=== PATIENT | male | born 1965 | race Caucasian/White ===

== ENCOUNTER → 2016-10-20 | Outpatient (CLI) | payer BC ==
[~2016-10-20] MED LIST: ACET10VL INH; AMBI10TA PO; ASPI81TAEC PO; AZIT250T3 PO; BACT400T PO; BISO5TAB5 PO; CALC750T2 PO; CREO6000 PO; E-Z-GAS II EFFERVESCENT PACKET (SODIUM BICARB./CITRIC ACID/SIMETHICONE) As Ordered ONE; E-Z-HD 98% w/w 340GM SUSP BTL As Ordered ONE; E-Z-PAQUE 96% w/w SUSP 176GM BTL As Ordered ONE; FERR325T PO; FOLI800T PO; IPRA6SP; LEVA1.256 INH; MAGN400T5 PO; MONT10TA2 PO; OMEP20CA3 PO; PRAD75CA3 PO; PRED5TA PO; PROG1CAP10 PO; VITA500046 PO; VITMTA PO; [UNRECOGNIZED DRUG - CODE] PO
--- NOTE | 2016-10-20 11:24 | REP ---
Double contrast esophagram: History: Evaluate for oropharyngeal dysphasia. The patient is status post double lung transplant. 1 minute 19 seconds of fluoroscopy time was utilized. Findings: Preliminary keyboard action assembler radiograph demonstrates linear fibrosis and a little adjacent pleural thickening in the left base. Prior sternotomy wires are seen. Heart is not enlarged. The oropharyngeal phase of the barium swallow is recorded on rapid sequence spot radiographs in the AP and lateral projection. No motor discoordination of swallow is seen. No intrinsic or extrinsic mass lesion is observed in the pharynx, hypopharynx or cervical esophagus. No evidence of tracheal aspiration. No significant cervical spine abnormality. The thoracic esophagus is normal in caliber and course. One episode of mild gastroesophageal reflux is observed. A small sliding hiatal hernia is seen with recumbent prone imaging. There is a 4 mm filling defect noted in the distal esophagus at the GE junction associated with one of the gastric folds involved in the hiatal hernia. This oval-shaped filling defect may be a small 4 mm polyp. No other evidence of mass lesion seen. Impression: 1. No evidence of upper esophageal mass, intrinsic or extrinsic. Normal oral pharyngeal phase of the barium swallow. 2. Small sliding hiatal hernia with mild reflux. 3. 4 mm filling defect at the GE junction, question small polyp. Consider endoscopy. Signed by Jasper Oseguera MD 10/20/2016 03:04 P
== END | disposition home or self-care (01) ==
LOC: M RAD 09:25
PROVIDERS: ATTEND Internal Medicine Pulmonary Disease
DX: R13.10 Dysphagia, unspecified (principal); K44.9 Diaphragmatic hernia without obstruction or gangrene

== ENCOUNTER 2016-12-23 07:42 | Inpatient (IN) | payer BC ==
[~2016-12-23] VITALS: Ht 172.7 cm; Wt 90.7 kg
[~2016-12-23 07:42] MED LIST changes: -E-Z-GAS II EFFERVESCENT PACKET (SODIUM BICARB./CITRIC ACID/SIMETHICONE) As Ordered ONE; -E-Z-HD 98% w/w 340GM SUSP BTL As Ordered ONE; -E-Z-PAQUE 96% w/w SUSP 176GM BTL As Ordered ONE
[2016-12-23] MEDS ORDERED: AMIODARONE HCL 150 MG in APPROPRIATE DILUENT 1 EA IV STA ×4 (08:37→15:35)
[2016-12-23 08:50] LABS: MEAN CORPUSCULAR HEMOGLOBIN 32.3 pg (27.0-33.0); MEAN CORPUSCULAR HGB CONC 33.9 g/dl (32.0-36.5); MEAN CORPUSCULAR VOLUME 95.4 fl (80.0-96.0); WHITE BLOOD COUNT 6.2 K/mm3 (4.0-10.0)
[2016-12-23] MEDS ORDERED: MAGNESIUM OXIDE 400 MG TAB (MAG-OX) PO SCH (09:00)
[2016-12-23 09:22] LABS: INR 0.92
[2016-12-23 09:45] LABS: ALBUMIN 3.7 GM/DL (3.2-5.2); ALBUMIN/GLOBULIN RATIO 1.06 (1.00-1.93); ALKALINE PHOSPHATASE 90 U/L (45-117); ALT/SGPT 62 U/L (12-78); ANION GAP 9 MEQ/L (8-16); AST/SGOT 25 U/L (15-37); BILIRUBIN,TOTAL 0.3 MG/DL (0.2-1.0); BLOOD UREA NITROGEN 24 MG/DL (7-18); CALCIUM LEVEL 8.4 MG/DL (8.5-10.1); CARBON DIOXIDE LEVEL 23 MEQ/L (21-32); CHLORIDE LEVEL 110 MEQ/L (98-107); CREATININE FOR GFR 1.31 MG/DL (0.70-1.30); GLOMERULAR FILTRATION RATE > 60.0 (>60); GLUCOSE, FASTING 121 MG/DL (70-105); POTASSIUM SERUM 4.5 MEQ/L (3.5-5.1); SODIUM LEVEL 142 MEQ/L (136-145); TOTAL PROTEIN 7.2 GM/DL (6.4-8.2)
[2016-12-23] MEDS ORDERED: BISOPROLOL FUMARATE 5 MG TAB As Ordered ONE (09:57)
[2016-12-23] MEDS ORDERED: BISOPROLOL FUMARATE 5 MG TAB PO ONE ×2 (09:57→12:45)
[2016-12-23] MEDS ORDERED: MAGNESIUM OXIDE 400 MG TAB (MAG-OX) PO ONE (10:45)
[2016-12-23] MEDS ORDERED: DIGOXIN INJ 0.5 MG/2 ML AMP (J1160) As Ordered ONE (11:21)
[2016-12-23] MEDS ORDERED: DIGOXIN INJ 0.5 MG/2 ML AMP (J1160) IV ONE ×3 (11:37→15:45)
--- NOTE | 2016-12-23 11:47 | REP ---
PORTABLE CHEST: AP portable view of the chest is performed and compared to a prior study of 04/08/2016. There is mild cardiomegaly. Linear densities in each lung base are again seen unchanged consistent with bibasilar fibroatelectatic change. There is no new infiltrate or overt pulmonary edema. Mediastinal silhouette is unchanged. There are multiple sternal wires and mediastinal clips. IMPRESSION: Stable mild cardiomegaly and bibasilar fibroatelectatic change. No evidence for acute infiltrate. Signed by Joao Kitchen MD 12/23/2016 12:59 P
[2016-12-23 11:51] LABS: METHADONE URINE NEGATIVE (NEGATIVE)
[2016-12-23] MEDS ORDERED: DABIGATRAN ETEXILATE 75 MG CAP (PRADAXA) PO SCH (12:00)
--- NOTE | 2016-12-23 12:36 | ECGEPIP ---
Stationary ECG Study [facility] - ED Test Date: 2016-12-23 Pat Name: SUMIT CORTEZ Department: Room: - Gender: M Seal Extrusion Operator: JESUS : 1965 Requested By: Babak Wilson Order Number: [id number] Reading MD: Joann Walton Measurements Intervals [place] Rate: 133 P: [place]: 0 QRS: 44 QRSD: 94 T: 43 QT: 287 QTc: 427 Interpretive Statements ATRIAL FLUTTER/TACHYCARDIA WITH RAPID VENTRICULAR RESPONSE POSSIBLE RIGHT VENTRICULAR CONDUCTION DELAY LEFT VENTRICULAR HYPERTROPHY AND ST-T CHANGE VS ISCHEMIA PRIOR SINUS 07/11/16 Electronically Signed On 12-23-2016 12:36:11 EDT by Joann Walton
[2016-12-23] MEDS: ENTER DRUG NAME HERE (PATIENT'S OWN MED) PO ONE ×2 (13:30→16:00)
[2016-12-23] MEDS ORDERED: BISO5TAB5 PO (14:36)
[2016-12-23] MEDS ORDERED: ASPI1TAB PO (14:39)
[2016-12-23] MEDS ORDERED: CREON 6000 UNIT PO ONE (16:00)
[2016-12-23] MEDS ORDERED: ENTER DRUG NAME HERE (PATIENT'S OWN MED) PO ONE (17:15)
[2016-12-23] MEDS ORDERED: LEVALBUTEROL 1.25 MG/0.5 ML CONCENTRATE NEB INH PRN (21:00)
[2016-12-23] MEDS ORDERED: ACETYLCYSTEINE 10% 30 ML VIAL INH PRN (21:00)
[2016-12-23] MEDS ORDERED: zolPIDEM TARTRATE 10MG TAB PO PRN (21:00)
[2016-12-23] MEDS ORDERED: ACETAMINOPHEN TAB 650MG DOSE (2X325MG) PO PRN (21:00)
[2016-12-23] MEDS ORDERED: IPRATROPIUM 0.06% NASAL SPRAY 15 ML (ATROVENT) PRN (21:00)
[2016-12-23] MEDS ORDERED: BISOPROLOL FUMARATE 5 MG TAB PO SCH (21:00)
[2016-12-23] MEDS: DOCUSATE SODIUM 100 MG CAP PO SCH (21:00)
[2016-12-23] MEDS ORDERED: MONTELUKAST 10 MG TAB PO SCH (21:00)
[2016-12-23] MEDS: MAGNESIUM OXIDE 400 MG TAB (MAG-OX) PO SCH (21:25)
[2016-12-23] MEDS: OMEPRAZOLE 20 MG CAP PO SCH (21:25)
[2016-12-23 21:54] VITALS: BP 128/83
[2016-12-23] MEDS: BISOPROLOL FUMARATE 5 MG TAB PO SCH (21:54)
[2016-12-23] MEDS: DABIGATRAN ETEXILATE 75 MG CAP (PRADAXA) PO SCH (21:54)
--- NOTE | 2016-12-23 23:21 | HPE ---
DATE OF ADMISSION: 12/23/2016 PRIMARY CARE PROVIDER: Dr. Kam CHINESE TEACHER: Dr. Bernstein and Dr. Martinez TRANSPLANT SURGEON: Dr. Pritchett CHIEF COMPLAINT: Palpitations. 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 The patient sees Dr. Heriberto Pritchett at [facility]; phone number [phone]. The patient presented with a 1-day history of palpitations, subsequently presented to the emergency department (ED) and was found to be in atrial flutter with rapid ventricular response. The patient denies any chest pain, pressure or discomfort. Denies any significant medication change recently. He was given amiodarone, bisoprolol and digoxin in the emergency room. The patient denies any fevers or chills, shortness of breath, coughing. No sick contact. No leg swelling. No syncope or lightheadedness. The patient currently is comfortable. ALLERGIES: BENZODIAZEPINE, HYDRALAZINE, PENICILLIN. PAST MEDICAL HISTORY: Atrial flutter. Cystic fibrosis. GERD. Anemia. PAST SURGICAL HISTORY: Patient with lung transplant. SOCIAL HISTORY: The patient denies a history of smoking, drinking alcoholic beverages or illicit drug use. REVIEW OF SYSTEMS:10-point review of systems otherwise negative except for those mentioned in the history of the present illness. HOME MEDICATIONS: - acetylcysteine 10% solution 4 mL inhalation as needed for excessive secretions - aspirin 81 mg by mouth daily - azithromycin 250 mg three times a day, Tuesday, Tuesday, Tuesday - bisoprolol 5 mg by mouth twice a day - calcium lactate 750 mg by mouth twice a day - vitamin D 5000 units by mouth daily - Creon 6000 units capsule by mouth three times a day - ferrous sulfate 325 mg by mouth daily - folic acid 800 mcg by mouth daily - ipratropium inhalation three times a day as needed - levalbuterol 1.25 mg inhalation every 4 hours as needed - magnesium oxide 400 mg by mouth twice a day - montelukast 10 mg by mouth nightly - multivitamin one tablet by mouth daily - Noxafil 200 mg by mouth twice a day - prednisone 5 mg by mouth daily - omeprazole 20 mg by mouth twice a day - Prograf 1 mg by mouth every morning - Bactrim 400-80 mg tablet three times a week, Tuesday, Tuesday and Tuesday in the morning - Ambien 10 mg by mouth nightly as needed PHYSICAL EXAMINATION: VITAL SIGNS: Temperature 97, pulse 125, respirations 18, blood pressure 128/83, pulse oximetry 100% on room air. GENERAL: Patient alert and oriented times three, in no acute distress. HEENT: Normocephalic, atraumatic. PULMONARY: Bilaterally clear to auscultation. CARDIAC: Tachycardia, irregular. S1, S2. ABDOMEN: Soft, nontender, nondistended. EXTREMITIES: No edema bilateral lower extremities. EKG: Atrial flutter at 133. LABORATORY: WBC 6.2, hemoglobin and hematocrit 14.9 over 43.9, platelets 204. Chemistry: Sodium 142, potassium 4.5, chloride 110, bicarbonate 23, BUN 24, creatinine 1.3. Cardiac enzymes negative times two. TSH 2.76. ASSESSMENT AND PLAN: This is a 51-year-old male patient with underlying medical history of cystic fibrosis, status post bilateral double lung transplant, gastroesophageal reflux disease, anemia, also atrial flutter, admitted for atrial flutter with rapid ventricular response. PROBLEMS: 1. Atrial flutter with rapid ventricular response. Continue Zebeta, Pradaxa, digoxin as per cardiology. Will hold off amiodarone until discussion with cardiology given patient is on a lot of medications that can potentially have interactions. Case discussed initially with Dr. Bernstein by emergency room provider and Dr. Martinez from cardiology was consulted given that he is alteration hand over the weekend. Telemetry monitoring. Cardiac enzymes. Continue to monitor. 2. Cystic fibrosis with lung transplant. Continue medication as ordered. Supportive care. Patient currently not having any symptoms. 3. Gastroesophageal reflux disease. Continue proton pump inhibitor (PPI). 4. History of anemia. Follow hemoglobin and hematocrit, transfuse as needed. 5. Chronic kidney disease. BUN and creatinine currently at baseline. Continue to monitor. 6. Deep vein thrombosis (DVT) prophylaxis. Patient on Pradaxa for atrial flutter. DISPOSITION: Pending clinical improvement, telemetry monitoring, cardiology consultation tomorrow.
[2016-12-24] MEDS ORDERED: METAL LOCK LOOP XX ONE (03:44)
[2016-12-24 06:54] LABS: MEAN CORPUSCULAR HEMOGLOBIN 31.7 pg (27.0-33.0); MEAN CORPUSCULAR HGB CONC 33.3 g/dl (32.0-36.5); MEAN CORPUSCULAR VOLUME 95.3 fl (80.0-96.0); RED CELL DISTRIBUTION WIDTH 12.9 % (11.5-14.5); WHITE BLOOD COUNT 7.3 K/mm3 (4.0-10.0)
[2016-12-24 07:20] LABS: CALCIUM LEVEL 9.1 MG/DL (8.5-10.1); CREATININE FOR GFR 1.35 MG/DL (0.70-1.30); GLOMERULAR FILTRATION RATE 59.8 (>60); MAGNESIUM LEVEL 2.2 MG/DL (1.8-2.4); POTASSIUM SERUM 4.8 MEQ/L (3.5-5.1)
[2016-12-24] MEDS ORDERED: PROGRAF 0.5 MG PO SCH (08:00)
[2016-12-24] MEDS ORDERED: CREON 6000 UNIT PO SCH (08:00)
[2016-12-24] MEDS: DABIGATRAN ETEXILATE 75 MG CAP (PRADAXA) PO SCH (08:12)
[2016-12-24] MEDS: DOCUSATE SODIUM 100 MG CAP PO SCH (08:13)
[2016-12-24] MEDS ORDERED: ONDANSETRON 4MG/2ML VIAL (J2405) IV PRN (08:30)
[2016-12-24] MEDS: OMEPRAZOLE 20 MG CAP PO SCH (08:57)
[2016-12-24] MEDS: MAGNESIUM OXIDE 400 MG TAB (MAG-OX) PO SCH (08:57)
[2016-12-24] MEDS: BISOPROLOL FUMARATE 5 MG TAB PO SCH (08:58)
[2016-12-24] MEDS ORDERED: FERROUS SULFATE 325MG TAB PO SCH (09:00)
[2016-12-24] MEDS ORDERED: FOLIC ACID 1 MG TAB PO SCH (09:00)
[2016-12-24] MEDS ORDERED: VITAMIN D 1,000 INTERNATIONAL UNITS TABLET PO SCH (09:00)
[2016-12-24] MEDS ORDERED: BACTRIM 80MG/400MG TAB PO SCH (09:00)
[2016-12-24] MEDS ORDERED: MULTIVITAMINS/MINERALS THERAP 1 TAB PO SCH (09:00)
[2016-12-24] MEDS ORDERED: predniSONE 5 MG TAB PO SCH (09:00)
[2016-12-24] MEDS ORDERED: DIGOXIN 0.125 MG TAB PO SCH (09:00)
[2016-12-24] MEDS ORDERED: PROPOFOL 200 MG/20 ML VIAL As Ordered ONE (13:01)
[2016-12-24 13:42] VITALS: BP 120/80
--- NOTE | 2016-12-24 14:15 | RO ---
DATE OF PROCEDURE: 12/24/2016 PREPROCEDURE DIAGNOSIS: Typical atrial flutter. POSTPROCEDURE DIAGNOSIS: Normal sinus rhythm. PROCEDURE PERFORMED: Electrical biphasic cardioversion 150 joules times one with successful latter-day of normal sinus rhythm without complications. SURGEON: Dr. Ganga Martinez HANDKERCHIEF CUTTER: None. ANESTHESIA: Propofol administered by anesthesiologist. COMPLICATIONS: None. PROCEDURE DESCRIPTION: Transthoracic pace/sense patches were applied in reverse polarity such that the right upper chest patch was placed over the left posterior hemithorax and the apical patch was placed over the sternum. Following adequate sedation administered by anesthesiology, the patient received a single biphasic 150 joule direct current cardioversion shock, which converted him to sinus rhythm without any excessive pauses. No complications.
--- NOTE | 2016-12-24 14:29 | CR ---
DATE OF CONSULTATION: 12/24/2016 REFERRING PHYSICIAN: Dr. Shanelle Gardiner REASON FOR CONSULTATION: Typical atrial flutter. HISTORY OF PRESENT ILLNESS: Jhonny Calvillo is a 51-year-old man who is status post double lung transplant at the [facility] in 2009 because of cystic fibrosis. He has a history of transient postoperative atrial fibrillation following his double lung transplant. He had abrupt onset of palpitations and was found to be in atrial flutter with rapid ventricular response on 07/08/2016. He underwent successful direct cardioversion of typical atrial flutter on 07/11/[address] Martinez for which he received a single 150 joule biphasic cardioversion shock. The patient was in his usual state of health until about 11:00 p.m. on 12/22/2016 when he had the sudden onset of retrosternal rapid irregular palpitations which have persisted and are ongoing. He has noticed some transient slight shortness of breath laying supine since then. No exertional dyspnea. No paroxysmal nocturnal dyspnea. No chest, neck, jaw, or upper extremity pain, pressure, tightness, squeezing or heaviness with or without exertion. No presyncope or syncope. No leg or ankle swelling. No embolic events. No intermittent claudication. Echocardiogram Doppler on 07/10/2016 showed severe left atrial dilatation. Normal left ventricle size and wall thickness, wall motion and wall thickening. Normal left ventricle (LV) systolic function. Left ventricle ejection fraction (LVEF) 60% by visual estimate. Normal right ventricle size and systolic function. Normal right atrial size. Normal estimated right ventricle systolic pressure. At the time of the echocardiogram, he was in atrial flutter with predominantly 2:1 atrioventricular (AV) conduction with rapid ventricular response. OTHER PAST MEDICAL AND SURGICAL HISTORY: 1. Cystic fibrosis. 2. Typical atrial flutter as noted above. 3. Status post double lung transplant in [facility] in 2009. 4. Gastroesophageal reflux disease (GERD). 5. Anemia. 6. Obesity. ADVERSE DRUG REACTIONS: - benzodiazepines - hydralazine - penicillins HOME MEDICATIONS: - acetylcysteine 10% solution 4 mL inhaled daily as needed for excessive secretions - aspirin 81 mg daily - azithromycin 250 mg by mouth three times per week on Mondays, Wednesdays and Fridays - bisoprolol 5 mg by mouth twice a day - calcium lactate 750 mg by mouth twice a day - vitamin D 5000 units by mouth daily - Creon 6000 units one capsule three times a day - ferrous sulfate 325 mg daily - folic acid 800 mcg daily - ipratropium 2 sprays three times a day as needed (nasal spray) - levalbuterol 1.25 mg inhaled every 4 hours as needed - magnesium oxide 400 mg twice a day - Montelukast 10 mg at bedtime - multivitamin one daily - Noxafil 200 mg by mouth twice a day - omeprazole 20 mg by mouth twice a day - prednisone 5 mg daily - Prograf 0.5 mg one daily - Bactrim 400/80 mg one three times per week on Mondays, Wednesdays and Fridays - Ambien 10 mg by mouth at bedtime as needed for sleep CURRENT MEDICATIONS IN HOSPITAL: - acetaminophen 650 mg every 4 hours as needed - acetylcysteine 400 mg inhaled as needed for excessive secretions - Zithromax 250 mg on Mondays, Wednesdays and Fridays - bisoprolol 10 mg by mouth twice a day - Pradaxa 150 mg by mouth twice a day - digoxin 0.125 mg by mouth daily - Colace 100 mg by mouth twice a day - ferrous sulfate 325 mg by mouth daily - folic acid 1 mg by mouth daily - Atrovent nasal spray 2 sprays three times a day as needed for allergies - Xopenex 1.125 mg every 4 hours as needed - magnesium oxide 4 mg by mouth twice a day - Singulair 10 mg at bedtime - multivitamin one daily - unresolved medication, patient's own medication - omeprazole 20 mg by mouth twice a day - Zofran 4 mg IV every 4 hours as needed for nausea or vomiting - Prograf 0.5 mg by mouth daily - Creon 6000 units with meals by mouth - Noxafil oral suspension twice a day - prednisone 5 mg daily - Bactrim single strength one on Mondays, Wednesdays and Fridays - vitamin D 5000 units by mouth daily - Ambien 10 mg at bedtime as needed SOCIAL HISTORY: . No children. Disabled. Nonsmoker. No alcohol. No illicit drugs. Resident of [place], [place]. The patient reports he consumed two very large mugs of coffee on 12/22/2016 (regular brewed coffee). FAMILY HISTORY: Mother - chronic obstructive pulmonary disease and diabetes. Father - coronary artery disease. Brother - cystic fibrosis and also status post lung transplant. REVIEW OF SYSTEMS: As per history of present illness (HPI) above. No anxiety, panic attacks or depression. Other ten point review of systems otherwise negative. PHYSICAL EXAMINATION: Heart rate 127 (regular, atrial flutter with 2:1 AV conduction). Respiratory rate 18. Blood pressure 141/92 supine. Temperature 98.4. Oxygen saturation 95% on room air. Current height and weight not listed on this hospitalization thus far. Pleasant, , middle aged, mildly obese man who was not in any respiratory or psychologic distress. His previous height in the EMR was listed as 68 inches. No conjunctival pallor, scleral icterus or xanthomas. Multiple missing teeth. Oral mucosa was moist and without pallor or cyanosis. Jugular venous pulsations were at 3 cm. Trachea midline. No palpable thyroid. No clubbing, nail bed cyanosis, or splinter hemorrhages. No skin lesions, skin pallor or icterus. Oriented to person, place and time. Mood and affect were normal. Curvature of the spine normal. Gait normal. Gross motor strength and tone normal. No abnormal muscle atrophy, fasciculations or tremors. Respiratory expansion and effort was good. No crackles or wheezes. No palpable apex beat. No lifts, parasternal lifts, heaves, thrills, or palpable heart sounds. First and second heart sounds were normal, but rapid. No S3 or murmurs appreciated. No pericardial friction rubs. Extensive midline sternal scar was present. Carotids were normal in volume and contour and without bruits. No palpable abdominal aorta. No abdominal bruits. Pedal pulses normal. No lower extremity edema. No varicose veins. Abdomen was obese, soft and nontender with normal bowel sounds. No hepatosplenomegaly or other organomegaly. Liver span difficult to assess due to abdominal obesity. Stool for occult blood not presently indicated. I have independently visualized the patient's portable semi-upright chest x-ray acquired 12/23/2016 at 9:12 a.m. midline sternal wires present. Cardiomegaly despite portable technique. No pulmonary vascular redistribution. No interstitial or alveolar edema. No pleural effusions. Electrocardiogram (EKG) 12/23/2016 at 8:03 a.m. shows atrial flutter with 2:1 AV conduction. Appearance of typical atrial flutter. Rapid ventricular response. Heart rate 133 beats per minute. RSR, V1 and V2 (RV conduction delay). Nonspecific ST-T abnormalities. Laboratory work 12/24/2016: Hemoglobin 15.8, hematocrit 47.5 and platelets 224. PT INR 0.92. PTT 28.6. Laboratory work 12/24/2016: Shows sodium 138, potassium 4.8, chloride 106, CO2 25, BUN 23, creatinine 1.35, estimated GFR of 59.8, glucose 122, magnesium 2.2. Laboratory work 12/23/2016: Shows TSH 2.760. ASSESSMENT AND PLAN: 1. Typical atrial flutter (paroxysmal). Patient is symptomatic with palpitations. He has rapid ventricular response. The plan is to proceed with electrical cardioversion today. I have reviewed the benefits and risks of electrical cardioversion including, but not all inclusive: electrical hidalgo, respiratory arrest, cardiac dysrhythmias, adverse drug reactions. Patient was agreeable and signed the consent form. 2. Abnormal ECG. 3. Cardiomegaly (marked left atrial dilatation). Continue digoxin 0.125 mg by mouth daily, bisoprolol 10 mg by mouth twice a day, and Pradaxa 150 mg by mouth twice a day. Dr. Baker contacted this patient's psychophysiologist, Dr. Briana Toscano, yesterday, and it is my understanding that arrangements have been made for him to undergo reevaluation by Dr. Briana Toscano with consideration of electrophysiology study with radiofrequency ablation of typical atrial flutter.
[2016-12-24] MEDS ORDERED: AZITHROMYCIN 250 MG TAB PO SCH (21:00)
[2016-12-24] MEDS ORDERED: POSACONAZOLE PO SCH (21:00)
--- NOTE | 2016-12-25 04:01 | DSES ---
DATE OF ADMISSION: 12/23/2016 DATE OF DISCHARGE: 12/24/2016 Patient was discharged AGAINST MEDICAL ADVICE. Specialists involved in his care include Dr. Martinez. No complications during his stay. No procedures were performed during his stay. Past medical history is known for atrial flutter with rapid ventricular response, cystic fibrosis status post transplant, gastroesophageal reflux disease (GERD), anemia. The following is a summary of his hospitalization: This is a 51-year-old with history of cystic fibrosis status post double lung transplant from [facility] 2009, who presented with acute onset of palpitations and atrial flutter with rapid ventricular response, was admitted to the hospitalist service, treated with medical therapy, was made nothing by mouth with plans for potential cardioversion. The patient became frustrated because a room on the medical floor was not available and he was kept in the emergency department. Before being seen by Dr. Martinez, he left against medical advice. He will be continued on his home medications. He has plans to go to [place] and seek care there.
--- NOTE | 2016-12-25 13:41 | ECGEPIP ---
Stationary ECG Study [facility] Test Date: 2016-12-24 Pat Name: SUMIT CORTEZ Department: Room: [place] [address] Gender: M Wire Sawyer: APRIL : 1965 Requested By: Ganga Martinez Order Number: [id number] Reading MD: Ganga Martinez Measurements Intervals [place] Rate: 64 P: 35 MD: 138 QRS: 32 QRSD: 94 T: 23 QT: 374 QTc: 386 Interpretive Statements SINUS RHYTHM ST DEVIATION AND MODERATE T-WAVE ABNORMALITY, CONSIDER LATERAL ISCHEMIA Or post tachycardia repolarization abnormalities. No longer in atrial flutter, decreased heart rate, more pronounced repolarization abnormalities compared with 12/23/2016 at 8:03 AM. Electronically Signed On 12-25-2016 13:41:40 EDT by Ganga Martinez
== END 2016-12-24 15:03 | disposition home or self-care (01) | DRG 201 ==
LOC: M ED 08:37 → M ED INP 20:57
PROVIDERS: ADMIT Hospitalist; ATTEND Internal Medicine
PROC: 5A2204Z Restoration of Cardiac Rhythm, Single (ICD-10-PCS; principal; 2016-12-24 13:00)
DX: I48.3 Typical atrial flutter (principal); Z94.2 Lung transplant status; E84.9 Cystic fibrosis, unspecified; N18.9 Chronic kidney disease, unspecified; K21.9 Gastro-esophageal reflux disease without esophagitis; D64.9 Anemia, unspecified; E66.9 Obesity, unspecified; I51.7 Cardiomegaly; Z88.0 Allergy status to penicillin; Z88.8 Allergy status to other drugs, medicaments and biological substances; Z79.82 Long term (current) use of aspirin; Z79.52 Long term (current) use of systemic steroids; Z79.899 Other long term (current) drug therapy